=== PATIENT | male | born 1975 | race Caucasian/White ===

== ENCOUNTER 2017-12-28 11:12 | Emergency (ER) | payer OTHER ==
[2017-12-28] MEDS: LIDOCAINE 1% (MDV) 10 ML INJ INFIL (12:20)
[2017-12-28] MEDS: TRIMETHOPRIM/SULFAMETHOX (DS) TAB PO (12:20)
[2017-12-28] MEDS: CEPHALEXIN 500 MG CAP PO (12:20)
[2017-12-28] MEDS: IBUPROFEN 600 MG TAB PO (12:20)
== END 2017-12-28 13:25 | disposition home or self-care (01) ==
LOC: FTE 11:12
DX: L02.11 Cutaneous abscess of neck (principal)
CPT/HCPCS: 10060; 99284-25

== ENCOUNTER 2018-01-04 12:36 | Emergency (ER) | payer OTHER | END 2018-01-04 15:44 | disposition home or self-care (01) | LOC: FTE 12:36 | DX: L72.3 Sebaceous cyst (principal) | CPT/HCPCS: 99283; Z7502 ==

== ENCOUNTER 2018-01-13 13:39 | Inpatient (IN) | payer OTHER ==
[2018-01-13] MEDS: INSULIN LISPRO 100 UNIT/ML VIAL SC (16:48)
[2018-01-13] MEDS: SOD CHLORIDE 0.9% 2,000 ML IV (16:49)
[2018-01-13] MEDS: ONDANSETRON 4 MG INJ IV (16:49)
[2018-01-13 16:52] LABS: ADD MAN DIFF? NO
[2018-01-13 17:07] LABS: BASOPHIL # 0.1 10^3/ul (0.0-0.1); BASOPHILS % 0.8 % (0.0-2.0); EOSINOPHILS % 0.1 % (0.0-7.0); HEMATOCRIT 47.2 % (42.0-52.0); HEMOGLOBIN 14.8 g/dl (14.0-18.0); LYMPHOCYTES # 2.8 10^3/ul (0.8-2.9); LYMPHOCYTES % 21.1 % (15.0-51.0); MEAN CORPUSCULAR HEMOGLOBIN 22.7 pg (29.0-33.0); MEAN CORPUSCULAR HGB CONC 31.4 g/dl (32.0-37.0); MEAN CORPUSCULAR VOLUME 72.4 fl (82.0-101.0); MEAN PLATELET VOLUME 11.3 fl (7.4-10.4); MONOCYTE # 0.9 10^3/ul (0.3-0.9); MONOCYTES % 6.9 % (0.0-11.0); NEUTROPHIL # 9.5 10^3/ul (1.6-7.5); NEUTROPHILS % 70.2 % (39.0-77.0); PLATELET COUNT 498 10^3/UL (140-415); RED BLOOD COUNT 6.52 10^6/ul (4.70-6.10); RED CELL DISTRIBUTION WIDTH 19.4 % (11.5-14.5)
[2018-01-13 17:07] LABS: WHITE BLOOD COUNT 13.5 10^3/ul (4.8-10.8)
[2018-01-13 17:16] LABS: ALANINE AMINOTRANSFERASE 98 IU/L (13-69); ALBUMIN/GLOBULIN RATIO 1.16; ALKALINE PHOSPHATASE 198 IU/L (42-121); ANION GAP 31 (8-16); ASPARTATE AMINO TRANSFERASE 33 IU/L (15-46); BILIRUBIN,INDIRECT 0.5 mg/dl (0-1.1); BILIRUBIN,TOTAL 0.5 mg/dl (0.2-1.3); BLOOD UREA NITROGEN 13 mg/dl (7-20); CALCIUM 9.8 mg/dl (8.4-10.2); CHLORIDE 106 mmol/L (97-110); CREATININE 1.06 mg/dl (0.61-1.24); POTASSIUM 4.6 mmol/L (3.5-5.1); SODIUM 140 mmol/L (135-144); TOTAL PROTEIN 9.3 g/dl (6.1-8.1)
[2018-01-13 17:18] LABS: ADD UMIC YES; UR ASCORBIC ACID NEGATIVE (NEGATIVE); UR BACTERIA FEW /HPF (NONE SEEN); UR BILIRUBIN (Dip) NEGATIVE (NEGATIVE); UR BLOOD (Dip) 1+ mg/dL (NEGATIVE); UR CLARITY CLEAR (CLEAR); UR COLOR YELLOW (YELLOW); UR GLUCOSE (Dip) 3+ mg/dL (NEGATIVE); UR KETONES (Dip) 2+ mg/dL (NEGATIVE); UR LEUKOCYTE ESTERASE (Dip) NEGATIVE Leu/ul (NEGATIVE); UR MUCUS FEW /HPF (NONE SEEN); UR NITRITE (Dip) NEGATIVE (NEGATIVE); UR RBC 2 /HPF (0-5); UR SPECIFIC GRAVITY (Dip) 1.027 (1.003-1.030); UR TOTAL PROTEIN (Dip) 3+ mg/dl (NEGATIVE); UR UROBILINOGEN (Dip) NEGATIVE (NEGATIVE); UR WBC 1 /HPF (0-5)
[2018-01-13 17:19] LABS: CARBON DIOXIDE 8 mmol/L (21-31); GLUCOSE 478 mg/dl (70-220)
[2018-01-13 18:23] LABS: AADO2 Venous 84.2 mmHg; MODE ROOM AIR; MetHgb Venous 0.4 %; Sample Type Blood venous; Site OTHER; Venous COHb 0.3 %; Venous Fraction OxyHgb 40.1 %; Venous Oxygen Sat 40.4 mmHG (55.0-75.0); Venous Total Hemglobin 14.2 g/dl
[2018-01-13 18:24] LABS: ANION GAP 26 (8-16); BLOOD UREA NITROGEN 12 mg/dl (7-20); CALCIUM 9.2 mg/dl (8.4-10.2); CARBON DIOXIDE 12 mmol/L (21-31); CHLORIDE 109 mmol/L (97-110); CREATININE 0.94 mg/dl (0.61-1.24); SODIUM 141 mmol/L (135-144)
[2018-01-13 18:24] LABS: LACTIC ACID 1.9 mmol/L (0.5-2.0)
[2018-01-13 18:26] LABS: GLUCOSE 411 mg/dl (70-220)
[2018-01-13 18:27] LABS: POTASSIUM 5.6 mmol/L (3.5-5.1)
[2018-01-13] MEDS: INSULIN HUMAN REGULAR 100 UNIT in SOD CHLORIDE 0.9% 99 ML IV (19:15)
[2018-01-13] MEDS: LACTATED RINGER'S 1,000 ML IV ×2 (19:31→23:54)
[2018-01-13] MEDS: Regular insulin 100 Units/100 ml NS IV (19:40)
[2018-01-13 20:35] LABS: LACTIC ACID 1.9 mmol/L (0.5-2.0)
[2018-01-13 20:45] LABS: ANION GAP 22 (8-16); BLOOD UREA NITROGEN 11 mg/dl (7-20); CALCIUM 8.7 mg/dl (8.4-10.2); CARBON DIOXIDE 12 mmol/L (21-31); CHLORIDE 111 mmol/L (97-110); CREATININE 0.89 mg/dl (0.61-1.24); GLUCOSE 307 mg/dl (70-220); POTASSIUM 4.3 mmol/L (3.5-5.1); SODIUM 141 mmol/L (135-144)
[2018-01-13 22:15] LABS: LACTIC ACID 1.3 mmol/L (0.5-2.0)
[2018-01-13] MEDS: SOD CHLORIDE 0.9% 1,000 ML IV (22:20)
[2018-01-13] MEDS ORDERED: DEXTROSE 50% 50 ML SYRINGE IV ×2 (22:30)
[2018-01-13 22:47] LABS: PHOSPHORUS 2.3 mg/dl (2.5-4.9)
[2018-01-13 22:47] LABS: MAGNESIUM 1.9 mg/dl (1.7-2.5)
[2018-01-13 22:48] LABS: ANION GAP 21 (8-16); BLOOD UREA NITROGEN 10 mg/dl (7-20); CALCIUM 8.9 mg/dl (8.4-10.2); CARBON DIOXIDE 12 mmol/L (21-31); CHLORIDE 112 mmol/L (97-110); GLUCOSE 228 mg/dl (70-220); POTASSIUM 4.8 mmol/L (3.5-5.1); SODIUM 140 mmol/L (135-144)
[2018-01-13 22:51] LABS: HEMOGLOBIN A1C 10.9 % (0-5.9)
[2018-01-13] MEDS ORDERED: ONDANSETRON 4 MG INJ IV (23:00)
[2018-01-13] MEDS: ACCU-CHEK XX (23:23)
[2018-01-14] MEDS: LACTATED RINGER'S 1,000 ML IV ×2 (00:29→22:52)
[2018-01-14] MEDS: POTASSIUM CHLORIDE 20 MEQ in SOD CHLORIDE 0.9% 1,000 ML IV (01:03)
[2018-01-14] MEDS: POTASSIUM CHLORIDE 20 MEQ in LACTATED RINGER'S 1,000 ML IV (02:20)
[2018-01-14] MEDS: SOD CHLORIDE 0.45% 1,000 ML IV (02:20)
[2018-01-14] MEDS: D5W-0.45 NACL + KCL 20 MEQ 1,000 ML IV (03:02)
[2018-01-14] MEDS: INSULIN HUMAN REGULAR 100 UNIT in SOD CHLORIDE 0.9% 99 ML IV (03:26)
[2018-01-14] MEDS: ADJUSTMENT OF INSULIN INFUSION RATE (DKA PROTOCOL) XX (04:25)
[2018-01-14] MEDS: ACETAMINOPHEN 500 MG TAB PO (05:49)
[2018-01-14 05:50] LABS: ADD MAN DIFF? NO
[2018-01-14 05:55] LABS: WHITE BLOOD COUNT 8.5 10^3/ul (4.8-10.8)
[2018-01-14 05:55] LABS: BASOPHILS % 0.5 % (0.0-2.0); EOSINOPHILS # 0.1 10^3/ul (0.0-0.5); EOSINOPHILS % 0.8 % (0.0-7.0); HEMATOCRIT 32.4 % (42.0-52.0); HEMOGLOBIN 10.4 g/dl (14.0-18.0); LYMPHOCYTES # 2.4 10^3/ul (0.8-2.9); LYMPHOCYTES % 28.2 % (15.0-51.0); MEAN CORPUSCULAR HGB CONC 32.1 g/dl (32.0-37.0); MEAN CORPUSCULAR VOLUME 71.5 fl (82.0-101.0); MEAN PLATELET VOLUME 10.7 fl (7.4-10.4); MONOCYTE # 0.9 10^3/ul (0.3-0.9); MONOCYTES % 10.1 % (0.0-11.0); NEUTROPHIL # 5.1 10^3/ul (1.6-7.5); NEUTROPHILS % 59.5 % (39.0-77.0); PLATELET COUNT 261 10^3/UL (140-415); RED BLOOD COUNT 4.53 10^6/ul (4.70-6.10); RED CELL DISTRIBUTION WIDTH 17.6 % (11.5-14.5)
[2018-01-14 06:09] LABS: PHOSPHORUS 1.5 mg/dl (2.5-4.9)
[2018-01-14 06:11] LABS: ANION GAP 15 (8-16); BLOOD UREA NITROGEN 8 mg/dl (7-20); CALCIUM 8.2 mg/dl (8.4-10.2); CARBON DIOXIDE 16 mmol/L (21-31); CHLORIDE 113 mmol/L (97-110); CREATININE 0.73 mg/dl (0.61-1.24); GLUCOSE 126 mg/dl (70-220); POTASSIUM 3.3 mmol/L (3.5-5.1); SODIUM 141 mmol/L (135-144)
[2018-01-14] MEDS ORDERED: POTASSIUM CHLORIDE 20 MEQ POWDER FOR ORAL SOLN PO ×2 (08:00)
[2018-01-14] MEDS: POTASSIUM CHLORIDE 20 MEQ POWDER FOR ORAL SOLN PO (08:27)
[2018-01-14] MEDS: SODIUM PHOSPHATE IVPB (12:44)
[2018-01-14] MEDS: PANTOPRAZOLE 40 MG INJ IV (12:44)
[2018-01-14] MEDS: SOD CHLORIDE 0.9% IVPB (12:44)
[2018-01-14 13:21] LABS: ANION GAP 12 (8-16); BLOOD UREA NITROGEN 7 mg/dl (7-20); CALCIUM 8.5 mg/dl (8.4-10.2); CARBON DIOXIDE 16 mmol/L (21-31); CHLORIDE 114 mmol/L (97-110); CREATININE 0.72 mg/dl (0.61-1.24); GLUCOSE 146 mg/dl (70-220); POTASSIUM 3.6 mmol/L (3.5-5.1); SODIUM 138 mmol/L (135-144)
[2018-01-14] MEDS: D5-0.2 NACL + KCL 20 MEQ 1,000 ML IV (15:36)
[2018-01-14] MEDS: INSULIN GLARGINE [LANtus] 3 ML PEN SC (16:20)
[2018-01-14] MEDS ORDERED: GLUCAGON 1 MG INJ IM (18:30)
[2018-01-14] MEDS ORDERED: DEXTROSE 50% 50 ML SYRINGE IV ×2 (18:30)
[2018-01-14] MEDS ORDERED: GLUCOSE GEL 15 GRAM TUBE BUCCAL (18:30)
[2018-01-14] MEDS ORDERED: GLUCOSE GEL 15 GRAM TUBE PO ×2 (18:30)
[2018-01-14 18:55] LABS: ANION GAP 13 (8-16); BLOOD UREA NITROGEN 5 mg/dl (7-20); CALCIUM 8.5 mg/dl (8.4-10.2); CARBON DIOXIDE 18 mmol/L (21-31); CHLORIDE 110 mmol/L (97-110); CREATININE 0.77 mg/dl (0.61-1.24); GLUCOSE 185 mg/dl (70-220); POTASSIUM 3.9 mmol/L (3.5-5.1); SODIUM 137 mmol/L (135-144)
[2018-01-14] MEDS: ACCU-CHEK XX (19:04)
[2018-01-14 19:10] LABS: MAGNESIUM 1.6 mg/dl (1.7-2.5)
[2018-01-14 19:10] LABS: PHOSPHORUS 1.9 mg/dl (2.5-4.9)
[2018-01-14] MEDS: INSULIN ASPART [NOVOLOG] 3 ML PEN SC (20:04)
[2018-01-14] MEDS: metFORMIN 500 MG TAB PO ×2 (20:07→20:08)
[2018-01-14] MEDS: MAGNESIUM SULFATE 4 GM/100 ML 100 ML IVPB (22:40)
[2018-01-15] MEDS: ACCU-CHEK XX (02:00)
[2018-01-15] MEDS: POTASSIUM PHOSPHATE 40 MEQ in SOD CHLORIDE 0.9% 250 ML IVPB (02:16)
[2018-01-15 06:12] LABS: MAGNESIUM 2.3 mg/dl (1.7-2.5)
[2018-01-15 06:24] LABS: CHOLESTEROL 163 mg/dl (100-200)
[2018-01-15 06:24] LABS: HDL CHOLESTEROL 27 mg/dl (27-67); LDL CHOLESTEROL,CALCULATED 114 mg/dl; TRIGLYCERIDES 111 mg/dl (0-149)
[2018-01-15 06:25] LABS: ALANINE AMINOTRANSFERASE 76 IU/L (13-69); ALBUMIN 2.7 g/dl (3.3-4.9); ALKALINE PHOSPHATASE 113 IU/L (42-121); ANION GAP 13 (8-16); ASPARTATE AMINO TRANSFERASE 33 IU/L (15-46); BILIRUBIN,INDIRECT 0.3 mg/dl (0-1.1); BILIRUBIN,TOTAL 0.3 mg/dl (0.2-1.3); BLOOD UREA NITROGEN 6 mg/dl (7-20); CALCIUM 8.6 mg/dl (8.4-10.2); CARBON DIOXIDE 20 mmol/L (21-31); CHLORIDE 110 mmol/L (97-110); CREATININE 0.81 mg/dl (0.61-1.24); GLUCOSE 349 mg/dl (70-220); POTASSIUM 4.3 mmol/L (3.5-5.1); SODIUM 139 mmol/L (135-144); TOTAL PROTEIN 5.4 g/dl (6.1-8.1)
[2018-01-15 06:46] LABS: PHOSPHORUS 2.6 mg/dl (2.5-4.9)
[2018-01-15] MEDS ORDERED: EMPAGLIFLOZIN 10 MG TABLET PO (08:00)
[2018-01-15] MEDS: INSULIN ASPART [NOVOLOG] 3 ML PEN SC ×7 (08:21→21:00)
[2018-01-15] MEDS: metFORMIN 500 MG TAB PO ×3 (09:53→19:05)
[2018-01-15] MEDS: PANTOPRAZOLE 40 MG INJ IV (09:53)
[2018-01-15] MEDS: LINAGLIPTIN 5 MG TABLET PO (09:53)
[2018-01-15 16:17] LABS: CREATININE, RANDOM URINE 101 mg/dL (20-370); MICROALBUMIN/CREATININE RATIO 1000 (<30)
[2018-01-15] MEDS: INSULIN GLARGINE [LANtus] 3 ML PEN SC (21:14)
[2018-01-16] MEDS: ACCU-CHEK XX (01:36)
[2018-01-16 06:04] LABS: ADD MAN DIFF? NO
[2018-01-16 06:16] LABS: BASOPHILS % 0.6 % (0.0-2.0); EOSINOPHILS # 0.2 10^3/ul (0.0-0.5); EOSINOPHILS % 2.3 % (0.0-7.0); HEMATOCRIT 33.7 % (42.0-52.0); HEMOGLOBIN 10.9 g/dl (14.0-18.0); LYMPHOCYTES # 3.1 10^3/ul (0.8-2.9); LYMPHOCYTES % 43.1 % (15.0-51.0); MEAN CORPUSCULAR HEMOGLOBIN 23.2 pg (29.0-33.0); MEAN CORPUSCULAR HGB CONC 32.3 g/dl (32.0-37.0); MEAN CORPUSCULAR VOLUME 71.9 fl (82.0-101.0); MEAN PLATELET VOLUME 11.6 fl (7.4-10.4); MONOCYTE # 0.6 10^3/ul (0.3-0.9); NEUTROPHIL # 3.1 10^3/ul (1.6-7.5); NEUTROPHILS % 43.6 % (39.0-77.0); PLATELET COUNT 295 10^3/UL (140-415); RED BLOOD COUNT 4.69 10^6/ul (4.70-6.10); RED CELL DISTRIBUTION WIDTH 18.3 % (11.5-14.5)
[2018-01-16 06:16] LABS: WHITE BLOOD COUNT 7.1 10^3/ul (4.8-10.8)
[2018-01-16 06:46] LABS: ALANINE AMINOTRANSFERASE 93 IU/L (13-69); ALBUMIN/GLOBULIN RATIO 1.03; ALKALINE PHOSPHATASE 105 IU/L (42-121); ANION GAP 12 (8-16); ASPARTATE AMINO TRANSFERASE 48 IU/L (15-46); BILIRUBIN,INDIRECT 0.2 mg/dl (0-1.1); BILIRUBIN,TOTAL 0.2 mg/dl (0.2-1.3); BLOOD UREA NITROGEN 5 mg/dl (7-20); CALCIUM 8.6 mg/dl (8.4-10.2); CARBON DIOXIDE 23 mmol/L (21-31); CHLORIDE 111 mmol/L (97-110); CREATININE 0.72 mg/dl (0.61-1.24); GLUCOSE 224 mg/dl (70-220); MAGNESIUM 1.9 mg/dl (1.7-2.5); PHOSPHORUS 4.3 mg/dl (2.5-4.9); POTASSIUM 3.2 mmol/L (3.5-5.1); SODIUM 143 mmol/L (135-144); TOTAL PROTEIN 5.9 g/dl (6.1-8.1)
[2018-01-16] MEDS: PANTOPRAZOLE 40 MG INJ IV (08:03)
[2018-01-16] MEDS: metFORMIN 500 MG TAB PO ×2 (08:03→17:31)
[2018-01-16] MEDS: POTASSIUM CHLORIDE (SR) 20 MEQ TAB PO (08:03)
[2018-01-16] MEDS: LINAGLIPTIN 5 MG TABLET PO (08:03)
[2018-01-16] MEDS: INSULIN ASPART [NOVOLOG] 3 ML PEN SC ×7 (08:04→20:16)
[2018-01-16] MEDS: INSULIN GLARGINE [LANtus] 3 ML PEN SC (20:19)
[2018-01-17] MEDS: ACCU-CHEK XX (01:10)
[2018-01-17] MEDS: INSULIN ASPART [NOVOLOG] 3 ML PEN SC ×4 (08:01→12:12)
[2018-01-17] MEDS: metFORMIN 500 MG TAB PO (08:33)
[2018-01-17] MEDS: PANTOPRAZOLE 40 MG INJ IV (08:33)
[2018-01-17] MEDS: LINAGLIPTIN 5 MG TABLET PO (08:33)
== END 2018-01-17 13:44 | disposition home or self-care (01) | DRG 638 ==
LOC: FTE 13:39 → MS3 01-14 21:01 → PP2 01-15 18:20
PROVIDERS: Internal Medicine
PROC: 4A033R1 Measurement of Arterial Saturation, Peripheral, Percutaneous Approach (ICD-10-PCS; principal; 2018-01-13)
DX: E11.10 Type 2 diabetes mellitus with ketoacidosis without coma (principal); Z68.43 Body mass index [BMI] 50.0-59.9, adult; E83.39 Other disorders of phosphorus metabolism; E87.6 Hypokalemia; Z83.3 Family history of diabetes mellitus; E66.01 Morbid (severe) obesity due to excess calories; Z87.891 Personal history of nicotine dependence
CPT/HCPCS: 36415; 80048; 80053; 80061; 81001; 82043; 82803; 82962; 83036; 83605; 83735; 84100; 84443; 85025; 87040; 93005; 96361; 96365; 96366; 96367; 96372; 96375; 99285-25

== ENCOUNTER 2018-02-04 05:13 | Emergency (ER) | payer OTHER ==
[2018-02-04 05:57] LABS: ADD MAN DIFF? NO
[2018-02-04 06:03] LABS: BASOPHILS % 0.4 % (0.0-2.0); EOSINOPHILS # 0.2 10^3/ul (0.0-0.5); EOSINOPHILS % 1.9 % (0.0-7.0); HEMATOCRIT 38.5 % (42.0-52.0); HEMOGLOBIN 11.8 g/dl (14.0-18.0); LYMPHOCYTES # 4.4 10^3/ul (0.8-2.9); MEAN CORPUSCULAR HEMOGLOBIN 22.9 pg (29.0-33.0); MEAN CORPUSCULAR HGB CONC 30.6 g/dl (32.0-37.0); MEAN CORPUSCULAR VOLUME 74.8 fl (82.0-101.0); MEAN PLATELET VOLUME 9.6 fl (7.4-10.4); MONOCYTE # 0.7 10^3/ul (0.3-0.9); MONOCYTES % 6.6 % (0.0-11.0); NEUTROPHIL # 4.6 10^3/ul (1.6-7.5); NEUTROPHILS % 46.6 % (39.0-77.0); PLATELET COUNT 361 10^3/UL (140-415); RED BLOOD COUNT 5.15 10^6/ul (4.70-6.10); RED CELL DISTRIBUTION WIDTH 17.2 % (11.5-14.5)
[2018-02-04 06:03] LABS: WHITE BLOOD COUNT 9.9 10^3/ul (4.8-10.8)
[2018-02-04 06:27] LABS: ALANINE AMINOTRANSFERASE 97 IU/L (13-69); ALBUMIN 4.2 g/dl (3.3-4.9); ALBUMIN/GLOBULIN RATIO 1.23; ALKALINE PHOSPHATASE 116 IU/L (42-121); ANION GAP 12 (8-16); ASPARTATE AMINO TRANSFERASE 38 IU/L (15-46); BILIRUBIN,INDIRECT 0.4 mg/dl (0-1.1); BILIRUBIN,TOTAL 0.4 mg/dl (0.2-1.3); BLOOD UREA NITROGEN 10 mg/dl (7-20); CALCIUM 9.4 mg/dl (8.4-10.2); CARBON DIOXIDE 28 mmol/L (21-31); CHLORIDE 107 mmol/L (97-110); CREATININE 0.98 mg/dl (0.61-1.24); GLUCOSE 101 mg/dl (70-220); POTASSIUM 4.1 mmol/L (3.5-5.1); SODIUM 143 mmol/L (135-144); TOTAL PROTEIN 7.6 g/dl (6.1-8.1)
[2018-02-04 06:38] LABS: B-TYPE NATRIURETIC PEPTIDE 55 PG/ML (0-125)
[2018-02-04 06:46] LABS: TROPONIN-I < 0.010 ng/ml (0.000-0.120)
[2018-02-04 09:39] LABS: TROPONIN-I < 0.010 ng/ml (0.000-0.120)
== END 2018-02-04 10:17 | disposition home or self-care (01) ==
LOC: E/R 05:13
DX: R20.2 Paresthesia of skin (principal); E11.9 Type 2 diabetes mellitus without complications; R07.9 Chest pain, unspecified; Z79.4 Long term (current) use of insulin; Z79.84 Long term (current) use of oral hypoglycemic drugs
CPT/HCPCS: 36415; 71045; 80053; 82962; 83880; 84484; 85025; 93005; 99285-25

== ENCOUNTER 2018-07-28 07:46 | Emergency (ER) | payer OTHER | END 2018-07-28 08:37 | disposition home or self-care (01) | LOC: FTE 07:46 | DX: R05 Cough (principal); E11.9 Type 2 diabetes mellitus without complications; F17.210 Nicotine dependence, cigarettes, uncomplicated; Z79.4 Long term (current) use of insulin | CPT/HCPCS: 99283; Z7502 ==